=== PATIENT | female | born 1955 | race African-American/Black ===

== ENCOUNTER 2018-11-04 11:36 | Emergency (ER) | payer OTHER ==
[~2018-11-04] VITALS: Ht 160 cm; Wt 54.4 kg
[2018-11-04 12:50] LABS: ABSOLUTE NEUTROPHILS 1.3 thou/uL (1.4-8.2); BASOPHILS 0.7 % (0.0-2.0); EOSINOPHILS 1.1 % (0.0-3.0); HEMATOCRIT 37.6 % (37.0-47.0); HEMOGLOBIN 12.9 gm/dL (12.0-15.0); LYMPHOCYTES 44.1 % (24.0-44.0); MCH 33.1 pg (26.0-34.0); MCHC 34.3 g/dL (28.0-37.0); MCV 96.3 fL (80.0-100.0); MONOCYTES 9.3 % (1.0-8.0); PLATELET COUNT 162 thou/uL (150-400); POLYS 44.8 % (36.0-66.0); RBC 3.91 mil/uL (4.20-5.00); RDW 13.6 % (10.5-14.5)
[2018-11-04 13:05] LABS: CALCIUM 8.7 mg/dL (8.5-10.1); CREATININE 0.7 mg/dL (0.6-1.0); POTASSIUM 3.6 mmol/L (3.5-5.1)
[2018-11-04] MEDS ORDERED: MOBIC7.5 MG PO (14:29)
[2018-11-04 15:24] VITALS: BP 122/71
== END 2018-11-04 15:25 | disposition home or self-care (01) ==
LOC: ER 11:36
PROVIDERS: Nurse Practitioner Family
DX: S39.012A Strain of muscle, fascia and tendon of lower back, initial encounter (principal); S09.90XA Unspecified injury of head, initial encounter; M25.551 Pain in right hip; R78.0 Finding of alcohol in blood; I10 Essential (primary) hypertension; F31.9 Bipolar disorder, unspecified; F20.9 Schizophrenia, unspecified; W00.0XXA Fall on same level due to ice and snow, initial encounter; Y92.89 Other specified places as the place of occurrence of the external cause; Y93.89 Activity, other specified; Y99.8 Other external cause status

== ENCOUNTER 2018-12-28 14:54 | Inpatient (IN) | payer MEDICAID ==
[~2018-12-28] VITALS: Ht 157.5 cm; Wt 46.4 kg
[~2018-12-28 14:54] MED LIST: MOBIC7.5 MG PO
--- NOTE | 2018-12-28 15:19 | NUR ---
PHONE NUMBER: KEMAR SILAS: [phone] SON'S PHONE NUMBER: WILLY SILAS: [phone]
[2018-12-28 15:59] LABS: ABSOLUTE NEUTROPHILS 1.8 thou/uL (1.4-8.2); BASOPHILS 1.2 % (0.0-2.0); EOSINOPHILS 0.4 % (0.0-3.0); HEMATOCRIT 33.1 % (37.0-47.0); HEMOGLOBIN 11.5 gm/dL (12.0-15.0); LYMPHOCYTES 43.7 % (24.0-44.0); MCHC 34.6 g/dL (28.0-37.0); MCV 98.2 fL (80.0-100.0); MONOCYTES 10.7 % (1.0-8.0); PLATELET COUNT 196 thou/uL (150-400); RBC 3.37 mil/uL (4.20-5.00); RDW 13.9 % (10.5-14.5); WBC 4.1 thou/uL (4.0-11.0)
[2018-12-28 16:07] LABS: CALCIUM 8.7 mg/dL (8.5-10.1); CREATININE 0.7 mg/dL (0.6-1.0)
[2018-12-28 18:39] VITALS: BP 116/93
[2018-12-28 19:20] VITALS: BP 144/87
[2018-12-28 20:14] LABS: FOLIC ACID 22.9 ng/mL (8.6-58.9)
[2018-12-28 20:50] VITALS: BP 136/89
[2018-12-29 03:42] VITALS: BP 168/87
[2018-12-29] MEDS ORDERED: QUETIAPINE FUM100 MG PO ×2 (04:29→04:30)
[2018-12-29] MEDS ORDERED: KLOR-CON M2020 MEQ (04:31)
[2018-12-29] MEDS ORDERED: VITAMIN B-1100 M1 PO (04:31)
[2018-12-29] MEDS ORDERED: MAGOX 400400 MG PO (04:33)
[2018-12-29] MEDS ORDERED: ACAMPROSATE CA333 MG PO (04:33)
[2018-12-29] MEDS ORDERED: VITAMIN B-1100 M2 PO (04:33)
[2018-12-29] MEDS ORDERED: NORVASC10 MG PO (04:34)
[2018-12-29] MEDS ORDERED: METOPROLOL TART25 MG PO (04:34)
[2018-12-29] MEDS ORDERED: FOLIC ACID1 MG PO (04:35)
[2018-12-29] MEDS ORDERED: SEROQUEL XR400 M1 PO (04:37)
[2018-12-29 05:23] LABS: HEMATOCRIT 33.2 % (37.0-47.0); HEMOGLOBIN 11.4 gm/dL (12.0-15.0); MCH 34.1 pg (26.0-34.0); MCHC 34.2 g/dL (28.0-37.0); MCV 99.6 fL (80.0-100.0); RBC 3.33 mil/uL (4.20-5.00); RDW 13.8 % (10.5-14.5); WBC 2.1 thou/uL (4.0-11.0)
[2018-12-29 05:28] LABS: CALCIUM 8.2 mg/dL (8.5-10.1); CREATININE 0.7 mg/dL (0.6-1.0); POTASSIUM 3.8 mmol/L (3.5-5.1)
--- NOTE | 2018-12-29 06:28 | NUR ---
PT ARRIVED ON ETOH VIA ER FROM HOME. STATES HE COULD NOT CONTROL HIS . DURING ADMISSION PROCESS HOME MEDICATIONS WERE DISCOVERED AND SENT TO PHARMACY. PT'S SEROQUEL HAS NOT BEEN TAKEN SINCE IT WAS REFILLED 12/12. UNABLE TO GET ANY KIND OF ANSWERS DURING ADMISSION. PT HX STATES SHE HAS MENTAL HEALTH ISSUES AND HAS BEEN TO [facility] 3 TIMES IN THE PAST. AT TIMES PT IS COMBATIVE MANAGING BEHAVIOR WITH ATIVAN AND HALDOL. HEART RATE HAS BEEN TACHY, ADMINISTERED IV LOPRESSOR AND HAD GOOD RESULTS. BED ALARM IS A MUST PT WILL TRY TO GET OUT OF BED AND IS A FALL RISK. PT AT ONE POINT DISCOVERED EATING HER OWN FECES. HOURLY ROUNDING.
[2018-12-29 07:22] VITALS: BP 155/104; BP 158/102
[2018-12-29 11:30] VITALS: BP 155/101
--- NOTE | 2018-12-29 15:31 | NUR ---
Case opened to follow for dc planning. Pt admitted for ethol w/d and back pain. R/o seizures. Pt sleeping at this time. Assembler Erector spoke with the pt's spouse via phone to complete the cm assessment. Pt and spouse live together in an apt. The pt is disabled from her mental health issues with dx of schizophrenia and bipolar. She suffers from spinal stenosis also and fell in the parking lot of [employer] [facility] in October. She has been having back pain and drinking more since that time. Her spouse reports that she is indep with gait and adl's. She has a pcp Dr. Romero through the [facility] on . Her next appt is schedule for next Thursday. She [facility] services for psych/counseling and also has an appt next Thursday with ALVARO Vicente. She has not been taking her psych meds. Her spouse is supportive and will bring in her home med list to nursing. He takes her to her appts. He reports that she has been at [facility] within the past month as well. Cm role introduced. Will continue to follow for any dc planning needs. Psych eval pending.
--- NOTE | 2018-12-29 15:32 | NUR ---
Assumed care of Pt at 0700. Pt stuporous but arousable, confused, mostly groaning and yelling out impulsively. restless at times, several attempts to pull at medical equipment. no family at bedside. unable to tolerate PO due to AMS at this time. incontinent of bowel and bladder. psych consulted. EEG performed at bedside. hypertensive but stable. sinus on telemetry. will cont to monitor. slow progress toward poc goals.
[2018-12-29 16:31] VITALS: BP 157/112
[2018-12-29 19:30] VITALS: BP 153/113
--- NOTE | 2018-12-30 01:50 | NUR ---
OF PT CAME TO VISIT [facility]IS[facility]. EARLIER IN THE DAY WHEN SPEAKING TO CM HE SAID HE WOULD BRING UP PT'S PSYCH MEDICATIONS LIST. I ASKED AND HE FORGOT AGAIN. I GOT PT TO TAKE ORAL BP MEDICATION AND SEROQUEL, BUT REFUSED TO TAKE PART IN ASSESSMENT. PT COMBATIVE AND SWINGS AT STAFF. KEEP DISTANCE. BED ALARM IN PLACE. CIWA'S STILL AROUND 13. FOLLOWING POC AND ROUNDING HOURLY. IVF BEING INFUSED. STILL HARD TO TELL WHAT PT'S BASELINE MENTATION IS.
[2018-12-30 04:05] VITALS: BP 143/89
[2018-12-30 05:51] LABS: ALBUMIN 3.5 g/dL (3.4-5.0); CALCIUM 9.3 mg/dL (8.5-10.1); CREATININE 0.6 mg/dL (0.6-1.0); MAGNESIUM 1.7 mg/dL (1.8-2.4); PHOSPHORUS 3.8 mg/dL (2.5-4.9); POTASSIUM 3.3 mmol/L (3.5-5.1); TOTAL BILIRUBIN 1.5 mg/dL (<0.1-1.0); TOTAL PROTEIN 7.5 g/dL (6.4-8.2)
[2018-12-30 11:26] VITALS: BP 150/99
--- NOTE | 2018-12-30 13:46 | NUR ---
ASSUMED CARE OF PT AT 0700 THIS SHIFT. PT HAS NOT BEEN COOPERATIVE, HAS BEEN COMBATIVE TO THE STAFF AND SLEEPY/LETHARGIC NOT FOLLOWING COMMANDS. PT HAS BEEN ON CIWA PROTOCOL, ATIVAN IV ADMINISTERED WHEN NEEDED, PT WILL NOT TAKE PO MEDS. PT HAD A CT OF THE HEAD, SEE RESULTS. PT'S SON CALLED AND WANTED TO KNOW WHAT FAMILY NEEDS TO DO TO PLACE PT IN FACILITY WHERE SHE CAN GET BACK ON HER PSYCH MEDS, WILL FOLLOW UP WITH CASE MANAGEMENT. PT IS CURRENTLY RESTING COMFORTABLY, ASSESSMENTS ARE DOCUMENTED. PLAN OF CARE IS TO CONTINUE TO MONITOR PT CLOSELY.
[2018-12-30 15:14] VITALS: BP 158/84
--- NOTE | 2018-12-30 15:14 | NUR ---
SW received consult to obtain records from [facility] [[email or web address] SW reviewed chart and spoke with nursing and attending physician. Pt's HR was elevated earlier today. SW requested community arts centre manager to request records from [facility] [[email or web address] Psych is following to for recommendations at time of discharge. Pt's nurse states that pt's son, requested assistance with having pt involuntarily placed in a psych facility. SW returned call to [facility] at [phone] and left voice message. SW requested psych contact pt's son as well to discuss involuntary process. SW is following to assist as needed with discharge planning.
[2018-12-30 19:45] VITALS: BP 152/98
[2018-12-30] MEDS ORDERED: TRAZODONE HCL100 MG PO (19:53)
[2018-12-30] MEDS ORDERED: MOBIC7.5 MG PO (19:54)
[2018-12-30] MEDS ORDERED: REMERON15 MG PO (19:54)
[2018-12-30] MEDS ORDERED: PAXIL10 MG PO (19:54)
[2018-12-30 22:50] VITALS: BP 172/111
[2018-12-31] VITALS (7 sets, daily range): BP systolic 134–179; BP diastolic 80–112
--- NOTE | 2018-12-31 04:36 | NUR ---
ASSUMED CARE AT START OF SHIFT PT REMANINS VERY CONFUSED AGITATED AND COMBATIVE AT TIMES AT BEDSIDE AND PT WAS UNABLE TO RECONGIZE HIM , PT GIVEN ATIVAN AND HALDOL TIME X, PT BP ELEVATED BUT APPEARS TO MORE WHEN PT IS AGITATED. BED ALARM ON FOR SAFETY , PT INCONTINENT OF URINE TOOK SIP OF WATER , BUT REFUSED MORE WHEN OFFERED. WILL CONTINUE WITH PLAN OF CARE.
[2018-12-31 05:39] LABS: POTASSIUM 3.3 mmol/L (3.5-5.1)
--- NOTE | 2018-12-31 11:18 | NUR ---
Assumed care of patient at 0700. Patient is drowsy, but arousable to verbal stimuli. When awakened, patient is impulsive, restless, agitated. Appears to be having visual hallucinations, attempts to pull at lines. Will swing at staff and yell when awake and staff is attempting care. Was able to answer some basic questions this morning and follow simple commands, such as squeezing hands. Attempted to give sips of water, but patient kept pushing water away and saying no. Refusing PO medications. CIWAs as charted q 2 hours and treated accordingly. Patient with tremors when awake, otherwise when sleeping, no obvious tremoring. Incontinent of urine, cleaned as needed, barrier cream applied. Repositioning ever couple hours to maintain skin integrity. Fall precautions in place and hourly rounds performed. Dr. Aiken rounded, stating that patient has been seizing. Order for IV Keppra x1 now, neuro consult and transfer to CCU. IV Keppra given. Seizure precautions initiated, bed rails padded. No seizure activity witnessed by this RN during this shift. Report given to Kaitlin. Belongings gathered. Moved to room 214. Attempted to call , Sloan, with no answer. Message left with callback number.
--- NOTE | 2018-12-31 18:55 | NUR ---
PT TRANSFERED FROM [facility]. ALERT AND ORIENTED TO SELF. ON CIWA PROTOCAL. SCORED AN EIGHT. PRN ATIVAN GIVEN. UPDATED ON PTS PROGRESS. SEIZURE PRECAUTION ENFORCED. WILL CONTINUE TO MONITOR.
--- NOTE | 2018-12-31 22:14 | NUR ---
22:17> I PULLED OUT TWICE THE ATIVAN 2 MG IV FROM PYXIS BECAUSE THE 1ST ONE WAS WASTED. WHEN I WAS ABOUT TO GIVE THE MED THE PATIENT MADE A SUDDEN MOVEMENT AND I ACCIDENTALLY PUSH THE SYRINGE AND JUST WASTED THE MED TO THE PATIENT LEFT THIGH. SO I JUST PULLED ANOTHER DOSE. THAMK YOU,
[2019-01-01 00:38] VITALS: BP 144/83
[2019-01-01 05:27] LABS: ALBUMIN 3.7 g/dL (3.4-5.0); CALCIUM 9.6 mg/dL (8.5-10.1); CREATININE 0.6 mg/dL (0.6-1.0); MAGNESIUM 1.7 mg/dL (1.8-2.4); POTASSIUM 4.5 mmol/L (3.5-5.1); TOTAL PROTEIN 8.2 g/dL (6.4-8.2)
[2019-01-01 05:38] VITALS: BP 162/96
--- NOTE | 2019-01-01 06:20 | NUR ---
ASSESSMENT DOCUMENTED, PRN ATIVAN GIVEN PER CIWA PROTOCOL. ORIENTED TO SELF ONLY. REORIENTATION DONE. TURNING DONE, PERIANAL CARE DONE. FF UP POC.
[2019-01-01 08:17] VITALS: BP 141/98
--- NOTE | 2019-01-01 10:43 | NUR ---
PT PULLED OUT IV AND IS HAVING PERIODS OF DISORIENTATION. GAVE PO ATIVAN AND IV TEAM WILL COME TO BEDSIDE TO ESTABLISH IV ACCESS.
[2019-01-01 13:43] VITALS: BP 149/91
--- NOTE | 2019-01-01 18:29 | NUR ---
PT REMAINS STILL GOING THROUGH ETOH WITHDRAWAL SCORING AROUND 24 ON CIWA. GAVE IV ATIVAN SEVERAL TIMES THIS SHIFT.
[2019-01-01 19:40] VITALS: BP 157/106
[2019-01-02 04:55] VITALS: BP 158/85
--- NOTE | 2019-01-02 05:43 | NUR ---
ASSESSMENT DOCUMENTED.PT REMAINS DISORIENTED.ON CIWR PROTOCOL,CIWR SCORE 11 THIS AM,CONTINUES TO HAVE AUDITORY AND VISUAL HALLUCINATION.PT IMPULSIVE AND AGITATED WHILE GIVING CARE,TRYING TO HIT STAFF.OPENS EYES SPONTANEOULY.TREATED WITH ATIVAN PER CIWR PROTOCOL.IVF INFUSING.SEIZURE PRECAUTIONS INPLACE.NO SEIZURES ACTIVITIES NOTED.ON KEPPRA IV,TOLERATED. AT THE BEDISDE MOST OF THE EVENING HOURS.INCONTINENT OF B&B.POC IS TO CONTINUES WITH CURRENT ORDERS.WILL CONT TO MONITOR PER POC.
[2019-01-02 05:44] LABS: CALCIUM 9.1 mg/dL (8.5-10.1); CREATININE 0.5 mg/dL (0.6-1.0); MAGNESIUM 1.9 mg/dL (1.8-2.4)
[2019-01-02 05:50] LABS: POTASSIUM 2.7 mmol/L (3.5-5.1)
[2019-01-02 08:00] VITALS: BP 153/108
[2019-01-02 12:54] VITALS: BP 144/100
--- NOTE | 2019-01-02 14:50 | NUR ---
ASSUMED CARE AT SHIFT CHANGE, PATIENT REMIANS CONFUSED AND RESTLESS. SHE MADE SEVERAL ATTEMPS TO GET OUT OF THE BED, SHE IS MOVED TO 202 CLOSER TO NURSING STATION. ASSESSMENT DOCUMENTED, AND WILL CONTINUE WITH POC.
[2019-01-02 17:16] VITALS: BP 150/107
[2019-01-02 19:25] VITALS: BP 152/103
[2019-01-03 03:49] LABS: CALCIUM 8.8 mg/dL (8.5-10.1); CREATININE 0.6 mg/dL (0.6-1.0); MAGNESIUM 1.6 mg/dL (1.8-2.4); TOTAL BILIRUBIN 0.6 mg/dL (<0.1-1.0); TOTAL PROTEIN 6.3 g/dL (6.4-8.2)
[2019-01-03 03:52] LABS: POTASSIUM 2.9 mmol/L (3.5-5.1)
[2019-01-03 05:14] VITALS: BP 177/111
--- NOTE | 2019-01-03 06:00 | NUR ---
ASSESSMENT DOCUMENTED.PT RESTING AT THIS TIME.CONT ON ALCOHOL WITHDRAW TX PER PROTOCOL.CIWR HAS BEEN OVER 10.PT HAS BEEN IMPULSIVE MOST OF THE NOC.HAVING VISUAL AND AUDITORY HALLUCINATION.SOME TREMORS NOTED.PT FIDIGITY AND AGITATED WHILE AWAKE.TRYING MUTIPLE OF TIMES TO GET OOB.DISORIENTED MOST OF THE TIME.FOLLOWS SIMPLE COMMANDS.SEIZURE PRECAUTIONS IN PLACE.POC IS TO CONTINUES WITH TX.WILL CONT TO MONITOR PER POC.
[2019-01-03 07:04] VITALS: BP 131/85
[2019-01-03 11:23] VITALS: BP 132/93
--- NOTE | 2019-01-03 12:04 | HC ---
[facility] [place] [address] CONSULTATION Name: JEANIE ROSEN Room #: 202-P [facility] IN M.R.#: [id number] Admission: 12/28/18 ������������������ Attend Phys: Wade Whitaker MD Discharge: ������������������ Date of : 59 Report #: [id number] THIS REPORT FOR: //name// CC: Wade Whitaker [facility] physician/PCP DATE OF SERVICE: 12/31/2018 HISTORY OF PRESENT ILLNESS: This is a 63-year-old female patient who was evaluated by me for the possibility of seizure. The history is not very clear in this patient. No family member is available. The patient apparently has a history of schizophrenia and bipolar disorder. She came to the hospital with back pain. She has seen multiple physicians including psychiatrist and looks like she has a significant problem with alcohol intake. According to nurses, she was very agitated. She is in alcohol withdrawal. Her other problems may be contributing to her symptoms including a history of schizophrenia and bipolar disorder. REVIEW OF SYSTEMS: Attempted from the patient's record as the patient is not able to provide any history and none of the family member is available. Apparently, she has a psychiatric history of schizophrenia and bipolar disorder. Her EEG has demonstrated the possibility of seizure, but it has so much artifact. It is difficult to be certain about these seizures. This is all the 14 points relevant I can get in this patient. PAST MEDICAL HISTORY: Negative for any seizure. FAMILY HISTORY: Unavailable. SOCIAL HISTORY: She apparently has a history of alcohol abuse. PHYSICAL EXAMINATION: Indicate she does not cooperate. She did get some Ativan and she did not wake up for my examination. I tried to do the cranial nerve examination, I could not do it. There is no meningeal sign. Neuromuscular examination was attempted. It was impossible to do. I cannot tell about hearing or vision. She does not have any edema. Her blood pressure is 134/102, pulse is 105, temperature is 97.2. LABORATORY DATA: White count is only 2.1. She did have a CT scan of the head, which was mostly unremarkable. IMPRESSION: This patient has numerous medical problems. It is not possible to be certain if the epileptiform activity on the EEG is seizure because there is so much artifact in that EEG. It is okay to leave her on Keppra for the time being and we will try to repeat the EEG when she is stable. I will also try to talk to the to see how aggressive they want to be and what her baseline [address] [address] CONSULTATION Name: JEANIE ROSEN Room #: 202-P ADM IN M.R.#: [id number] Admission: 12/28/18 ������������������ Attend Phys: Wade Whitaker MD Discharge: ������������������ Date of : 59 Report #: [id number]. Thank you very much for this referral and if you have any questions, please feel free to contact me. ��������������������������������������������� <ELECTRONICALLY SIGNED> ���������������������������������������� By: Nghia Daley MD ��������������������������������������������� 01/03/19 1204 1419 [id number] MD lita Bell
--- NOTE | 2019-01-03 12:05 | EEG ---
[facility] [place] [address] ELECTROENCEPHALOGRAM Name: JEANIE ROSEN Room #: 202-P [facility] IN M.R.#: [id number] ������������������ Admission: 12/28/18 ������������������ Attend Phys: Wade Whitaker MD Discharge: ������������������ Date of : 59 Report #: [id number] ����������������������������������������������������������������� [id number] THIS REPORT FOR: //name// CC: Wade Whitaker [facility] physician/PCP DATE OF SERVICE: 01/01/2019 REASON FOR VISIT: This patient is being evaluated for altered mental status. Last EEG has shown some seizure activity because she did not cooperate. She did not cooperate this time either. INTERPRETATION: EEG does appear to be showing a background activity of about 10 Hz and 40 microvolts. A lot of artifact is present. Part of this EEG demonstrated drowsiness and that is associated with slowing on both sides. Photic stimulation was unremarkable. No active epileptiform activity was visualized in this patient. IMPRESSION: The patient's electroencephalogram continued to demonstrate lot of artifact. I did not see any active epileptiform activity. Combining this both electroencephalogram, it would appear that most likely the last finding was an artifact rather than real seizure activity. Thank you very much for this referral. ���������������������������������������� <ELECTRONICALLY SIGNED> ���������������������������������������� By: Nghia Daley MD ��������������������������������������������� 01/03/19 1205 [id number] Nghia Daley MD /nt
--- NOTE | 2019-01-03 12:05 | EEG ---
[facility] [place] [address] ELECTROENCEPHALOGRAM Name: JEANIE ROSEN Room #: 202-P ADM IN M.R.#: [id number] ������������������ Admission: 12/28/18 ������������������ Attend Phys: Wade Whitaker MD Discharge: ������������������ Date of : 59 Report #: [id number] ����������������������������������������������������������������� [id number] THIS REPORT FOR: //name// CC: Wade Whitaker [facility] physician/PCP DATE OF SERVICE: 12/29/2018 This patient has a question of seizure. EEG was done by placing the electrodes by standard 10-20 system of electrode placement. Both referential and sequential montages were used for recording. Background activity on the right side is about 9 Hz and 30 microvolts. The patient became drowsy that is associated with bilateral slowing. EEG does appear to be showing epileptiform activity arising from the left temporal area. It is difficult to totally separate it from the artifact. Photic stimulation is unremarkable. IMPRESSION: This patient's EEG appeared to be demonstrating epileptiform activity arising from the left temporal area. That should be further worked up as indicated. However, clinical correlation is recommended because the finding is difficult to separate from the artifact. Thank you very much for this referral. ���������������������������������������� <ELECTRONICALLY SIGNED> ���������������������������������������� By: Nghia Daley MD ��������������������������������������������� 01/03/19 1205 1410 1429 Nghia Daley MD /nt
--- NOTE | 2019-01-03 14:43 | NUR ---
Day 6 <10% intake. To prevent further nutritional decline, recommend Clinimix PPN of 4.25% AA, 5% Dextrose at goal rate of 50 mL/hr. Start at 20 mL and advance slowly. Monitor magnesium, phosphorus, potassium for refeeding syndrome.
[2019-01-03 15:07] VITALS: BP 127/93
--- NOTE | 2019-01-03 18:26 | NUR ---
ASSUMED CARE AT SHIFT CHANGE AND ASSESSMENT DOCUMENTED. VSS. PATIENT REMAINS CONFUSED AND RESTLESS AND MORE RESTLESS TOWARDS THE END OF THE SHIFT. CIWA ABOVE 10 IN THE AM BUT BELOW 10 THE REST OF THE DAY. AT THIS TIME CIWA OF 12 WITH VISAUL AND AUDITORY HALUCINATION NOTED. S/B PSYCH AND MED ADJUSTMENTS MADE. AND WILL CONTINUE WITH POC
[2019-01-03 18:55] VITALS: BP 164/99
--- NOTE | 2019-01-04 04:50 | NUR ---
ASSUMED PT CARE AT 1900 WITH BEDSIDE REPORT COMPLETED. PT IS ALERT AND ORIENTED TO SELF. PT IS STABLE BUT STARTED GETTING CONFUSED, AGITATED, COMBATIVE. PT IS HALLUCINATION. MEDICATION ADMINISTERED, AND PT PLACED IN RESTRAINT DUE TO DANGER TO OTHERS SCHEDULED MEDS ADMINISTERED TO PT, PT TOLERATED PO INTAKE. VITAL SIGNS STABLE. DENIES ANY FURTHER NEEDS AT THIS TIME.
[2019-01-04 05:50] VITALS: BP 180/96
[2019-01-04 07:06] VITALS: BP 117/76
--- NOTE | 2019-01-04 10:32 | NUR ---
patients [facility] Mental Health coordinator visited today. Lisa Giles [phone], She reports patient cont with ETOH cycle of drinking and withdraw. She has been at and recently [facility]. She reports at [facility] a couple of weeks for withdraw then [facility] to adjust medications. She reports she has spoken to patient that they cannot provide the services she needs. She has prev lived in [place] with a son but now residing in [place]. She has [place] medicaid and needs services provided by [facility] who services [place] and area in [place] [facility] currently [place]. Will discuss with patient however she cont to be confused.
[2019-01-04 10:39] VITALS: BP 140/101
[2019-01-04 15:08] VITALS: BP 164/113
--- NOTE | 2019-01-04 17:06 | NUR ---
ASSUMED CARE OF PT AT 0700. PT WAS ALERT TO PERSON AND WAS AGITATED AND ANXIOUS. 2 MG LORAZEPAM IM WAS ADMINISTERED PRESCRIBED FOR AGITATION AND ANXIETY. PT WAS ABLE TO SLEEP FROM 1011-1004, THEN CONTINUED TO SHOW SIGNS OF AGITATION. NURSES UTILIZED THERAPEUTIC COMMUNICATION AND THERAPEUTIC TOUCH WITH PT. PT BEGAN DEVELOPING HALLUCINATIONS AT 1600 AND WAS BECOMING COMBATIVE. DR. WHITT CONTACTED CONCERNING PTS CONDITION. PT WAS PLACED IN 4 POINT RESTRAINTS DUE TO COMBATIVENESS. PT DID NOT WANT TO EAT OR DRINK FOR MOST OF DAY, DRANK SODA IN PM. PT DID NOT REPORT NAUSEA AND NO VOMITING WAS OBSERVED. PT REPORTED BACK PAIN AND FACES SCALE WAS USED TO FIND A PAIN RATING OF 6. IV MORPHINE WAS ADMINISTERED. PT FREQUENTLY WAS IN SINUS TACHYCARDIA WITH A PULSE OF 113. PT EXHIBITED HIGH BLOOD PRESSURE OF 164/113 AND HYDRALAXZINE PO WAS GIVEN, THE MEDICATION WAS NOT GIVEN IN AM DUE TO PT REFUSAL. PT SHOWED NO DIFFICULTY WITH BREATHING AND MAINTAINED 02 WITHIN NORMAL LIMITS. WILL CONTINUE TO MONITOR PT.
--- NOTE | 2019-01-04 18:08 | NUR ---
I have reviewed the documentation by LYNETTE CAGE from 699 to 1811 and I concur with it.
[2019-01-04 19:55] VITALS: BP 125/75
--- NOTE | 2019-01-05 04:24 | NUR ---
ASSUMED PT CARE AT 1900 WITH NO SIGN OF DISTRESS NOTED, PT IS SLEEPING AND STILL IN RESTRAINTS. LATER, PT WOKE UP AND GOT COMBATIVE WITH SPOUSE IN THE ROOM. SCHEDULED MEDS ADMINISTERED TO PT. PT TOLERATED PO INTAKE. PT IS STABLE THROUGHTOUT THE NIGHT. DENIES ANY FURTHER NEEDS AT THIS TIME.
[2019-01-05 04:50] VITALS: BP 160/96
[2019-01-05 08:00] VITALS: BP 131/79
--- NOTE | 2019-01-05 10:36 | NUR ---
Day 8 with very little intake. Starting calorie count to obtain po intake. Will order supplements at each meal for encouraged po intake. Recommend Clinimix PPN of 4.25% AA, 5% Dextrose at 50 mL/hr. Will provide 91% protein needs and 29% kcal needs. Start at 20 mL/hr and advance slowly, monitoring for refeeding syndrome.
[2019-01-05 12:04] VITALS: BP 124/73
[2019-01-05 16:00] VITALS: BP 119/82
--- NOTE | 2019-01-05 18:13 | NUR ---
ASSUMED CARE OF PT AT SHIFT CHANGE. ASSESSMENTS CHARTED. MEDS GIVEN PER NOV. PT ALERT, ORIENTED TO PERSON, IMPULSIVE AND AGITATED AT TIMES. PT VERBALIZES THAT SHE NEEDS TO LEAVE TO GO TO THE STORE, AFTER REORIENTING, PT BECOMES COMBATIVE AT TIMES, KICKING AND SWINING AT NURSE STAFF. PT REASSURED, REORIENTED FREQUENTLY. ANXIETY/AGITATION MANAGED WITH ATIVAN PRN. PT C/O BACK PAIN- MANAGED WITH IV PAIN MEDS. PT IN 3 POINT RESTRAINTS WITH SIDE RAILS PADDED, RESTRAINTS DOCUMENTED. BED ALARM ON THROUGHOUT SHIFT, FREQUENT CHECKS ON PT. PT CONTINENT PER BEDPAN. PT REFUSED MEAL TRAYS, BUT WOULD DRINK ENSURES WITH EACH MEAL. O2 SATS WNL ON ROOM AIR, NO S/SX OF CARD OR RESP DISTRESS NOTED. VISITED WITH PT, PT BECAME HOSTILE VERBALLY. EVENTUALLY PT WAS CALM AND FELL ASLEEP. PT CURRENTLY RESTING IN BED, CONTINUING TO MONITOR, WILL ASSESS PT NEEDS FREQENTLY.
[2019-01-05 20:15] VITALS: BP 137/97
[2019-01-06 00:45] VITALS: BP 114/60
--- NOTE | 2019-01-06 02:57 | NUR ---
ASSUMED CARE AT 1900, RESTRAINT HAND-OFF COMPLETED. INITIAL ASSESSMENT COMPLETED. PT AGITATED, YELLING OUT, PULLING AT RESTRAINTS/BEDDING/TELE LEADS. PT C/O HER BACK HURTING, STATES SHE NEEDS TO USE THE BATHROOM--GIVEN BEDPAN ALTHOUGH PT IS FREQ INCONT. COMPLETED A FULL BED CHANGE. PT YELLING AND WANTING HER WATCH, HER KEYS, TO GO TO THE [facility] STORE, AND WANTING TOBACCO; NOT REDIRECTABLE, IS DISORIENTED x4. GIVEN 2MG PO ATIVAN ALONG WITH HS MEDS; PT CONTINUED TO YELL AND THRASH. GIVEN SPRITE AND APPLESAUCE. GIVEN DOSE OF MORPHINE FOR BACK PAIN, SINCE THEN SHE HAS SLEPT. MAINTAINING FREQ OBSERVATION AND SAFETY CHECKS PER FALL, SEIZURE, AND RESTRAINT PROTOCOLS. HAS BEEN SR WITH 1ST DEG BLOCK ON TELE, HR IN 90'S WHEN AGITATED AND 70'S WHILE SLEEPING. NO OTHER CONCERNS, WILL CONTINUE TO MONITOR.
[2019-01-06 04:02] VITALS: BP 136/95
[2019-01-06 08:00] VITALS: BP 126/83
[2019-01-06 12:07] VITALS: BP 111/73
--- NOTE | 2019-01-06 12:10 | NUR ---
Case discussed with the care team. Will ask for therapy and rehab medicine evals. Nursing will try to mobilize the pt and get her up to the chair. 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 She was able to participate in conversation and decision making as well per her spouse. She will likely need some level of rehab. Psych imput noted. Will follow along.
[2019-01-06 12:47] LABS: CALCIUM 9.6 mg/dL (8.5-10.1); CREATININE 0.6 mg/dL (0.6-1.0); POTASSIUM 3.6 mmol/L (3.5-5.1)
--- NOTE | 2019-01-06 14:44 | NUR ---
GERALDINE RODRIGUEZ, TELEPHONE SUPERVISOR WITH DR. WHITE, EVALUATED PATIENT THIS DATE. AT THIS TIME PATIENT IS IN RESTRAINTS, NOT COMMUNICATING OR FOLLOWING COMMANDS. GERALDINE/DR. WHITE WILL CONTINUE TO FOLLOW AND REASSESS APPROPRIATENESS FOR ACUTE REHAB WHEN PATIENT BETTER ABLE TO PARTICIAPTE. [facility] ACUTE REHAB IS NOT IN NETWORK WITH PATIENT'S INSURANCE. TIMBER MANAGEMENT ASSISTANT HAS BEEN INFORMED. THANK YOU FOR THIS REFERRAL.
[2019-01-06 16:00] VITALS: BP 103/66
--- NOTE | 2019-01-06 18:42 | NUR ---
ASSUMED CARE AT SHIFT CHANGE, CONFUSED AND RESTLESS. RESTARINTS OFF AT 8 AM, AND FOLLOWS SIMPLE COMMANDS. REMAINS TO REFUSE FOOD INTAKE. SHE BECAME RESTLESS AROUND 1430 AND SHE WAS IN UP IN A WHEEL CHAIR. PATIENT START CRYING AND CALL HER NAME, 2MG ATIVAN PO AND WAS PUT BACK TO BED TO REST. SHE REMAINS RESTLESS. VSS, SR ON THE MONITOR AND AFEBRILE. AND WILL CONTINUE WITH POC.
[2019-01-06 20:34] VITALS: BP 104/72
[2019-01-07 04:55] VITALS: BP 121/85
--- NOTE | 2019-01-07 07:23 | NUR ---
PATIENTS CARE ASSUMED AT SHIFT CHANGE. PATIENT WAS ASSESSED AND MEDS WERE PASSED. PATIENT BECAME VERY COMBATIVE DURING REPORT WITH HER MALE PARTNER. ALL 2100 [place] [address]. BY 2029 PATIENT WAS SOUND A SLEEP AND NURSING WOKE HER UP AT SIX FOR A BED BATH DUE TO HER INCONTINENT. PATIENT WAS WASHED AND LINEN WAS CHANGED. PATIENT WILL TAKE PILLS WHOLE AND SHE CHEWS THEM. SHE WILL TAKE WITH WARM COFFEE ,WATER OR APPLESAUCE. IF COFFEE IS COLD SHE WILL SPIT IT AT YOU. PATIENT HAD AN UNEVENTFUL NIGHT. NO RESTRANTS WERE NEEDED. THE BED IS IN A LOW AND LOCK POSITION, THE ALARM IS ON. HOURLY PLUS ROUNDS WERE MADE.
--- NOTE | 2019-01-07 11:52 | NUR ---
PT ASSESSED AT START OF SHIFT. SLEEPING AND THEN AWAKENED CONFUSED AND RESISTENT TO CARE. WOULD NOT AGREE TO EAT ANY BREAKFAST OR DRINK ANYTHING INCLUDING COFFEE WHICH SHE LIKES. REFUSED TO TAKER HER MEDS AND THEN TURNED ON SIDE AND FELL BACK TO SLEEP. HAS AWAKENED INTERMITTENTLY MOANING IF IN PAIN AND THEN RETURNS TO SLEEP. CONTINUING TO MONITOR FREQUENTLY.
[2019-01-07 12:13] VITALS: BP 139/94
--- NOTE | 2019-01-07 13:51 | NUR ---
Calorie count complete. For 24 hour period, pt meeting 54% kcal needs and 67% protein needs solely from Ensure supplement. Refusing all meals. Still combative, confused. Needs encouragement of po intake. Will order 2 supplements/meal for additional nutrition.
--- NOTE | 2019-01-07 14:00 | NUR ---
[facility] acute rehab is out of network with the pt's insurance plan. Will ask for [facility] or [facility]NA[facility]EL eval once the pt is able to fully participate in therapy. Rehab medicine is following. Case discussed with the care team.
--- NOTE | 2019-01-07 18:33 | NUR ---
PT CONTINUES TO BE CONFUSED AND DISORIENTED. MORE COOPERATIVE W/ CARE THIS AFTERNOON. DRANK WATER W/ MEDS AND DRANK ENSURE WITH 'S HELP. UP TO THE BSC FOR BM AND UNABLE TO STAND WAS COMPLETE LIFT TO COMMODE.
[2019-01-07 20:18] VITALS: BP 98/70
--- NOTE | 2019-01-08 05:04 | NUR ---
ASSESSMENT DOCUMENTED.PT RESTING AT THIS TIME.PT WAS VERY AGITATED,CONFUSED AND IMPLUSIVE AT THE BEGINNING OF THE SHIFT, TRYING TO CLIMB OVER THE RAILS,TRYING TO HIT AND KICK STAFF.TRIED TO CALM PT DOWN WITHOUT SUCCESS REQUIRING GIVING OF ANTIANXIETY MEDS.PT LATER FELL ASLEEP AFTER COUPLE OF HOURS TRING TO CLIMB OUT OF THE BED AND YELLING OUT.
[2019-01-08 06:15] VITALS: BP 149/106
[2019-01-08 08:09] VITALS: BP 154/104
[2019-01-08 13:44] VITALS: BP 174/105
[2019-01-08 16:06] VITALS: BP 130/88
--- NOTE | 2019-01-08 17:20 | NUR ---
PT REMAINS CONFUSED, COMBATIVE, AND DIFFICULT TO REDIRECT - ATTEMPTS TO CLIMB OOB - DID AMBULATE FROM BED TO DOOR AND BACK /C PT/NURSE ASSIST - RECOGNIZES AT BEDSIDE
[2019-01-08 20:36] VITALS: BP 120/89
[2019-01-09 04:07] VITALS: BP 121/81
--- NOTE | 2019-01-09 05:14 | NUR ---
ASSUMED CARE AT 1900. BT RESTLESS AND COMBATIVE TRYING TO GET OUT OF THE BED LOOKING FOR HER WALLET. AO X 2. WAS GIVEN PO ATIVAN AND NORCO X1 AT AROUND 1900. PT LETER SETTLED AND SLEPT MOST OF THE NIGHT. STILL ON SEIZURE PRECAUTION. NO INJURY OR FALL REPORTED. WILL CONTINUE TO FOLLOW POC.
[2019-01-09 08:50] VITALS: BP 121/80
[2019-01-09 10:46] LABS: CALCIUM 10.1 mg/dL (8.5-10.1); CREATININE 0.6 mg/dL (0.6-1.0); POTASSIUM 3.3 mmol/L (3.5-5.1)
[2019-01-09 11:24] VITALS: BP 101/73
[2019-01-09 16:50] VITALS: BP 102/73
--- NOTE | 2019-01-09 17:08 | NUR ---
ASSUMED CARE AT 0730, SLEEPING BUT AWAKES TO VOICE. DOES NOT WANT TO GET UP, STATES SHE IS GOING BACK TO SLEEP. SR ON MONITOR, NO COMPLAINTS OF PAIN, NAUSEA, OR VOMITING. DR. VEGA WANTS BETTER DOCUMENTATION OF PO INTAKE. WHEN AWAKE, SHE WILL TAKE SIPS OF WATER. 180CC IN FOR ME THIS SHIFT. STILL UNCOOPERATIVE AND AGITATED WHEN AWAKE.
[2019-01-09 19:34] VITALS: BP 93/61
--- NOTE | 2019-01-10 03:35 | NUR ---
ASSUMED CARE 1899. VSS. ASSESSMENT CHARTED. PT ALERT WITH BEGINING OF SHIFT CALM COMMUNICATION. THROUGHOUT NIGHT PT BECAME AGITATED. PT STARTED TO SAY SHE "NEEDED TO GO TO THE STORE, THE POLICE WERE GOING TO GET HER" CONTINUE TO TALK TO THE WINDOW. PT STARTED TO HIT AND KICK AT STAFF. GOVERNMENT EMPLOYEE NOTIFIED, 2 POINT SOFT RESTRAINTS IN PLACE, FREQUENT CHECKS PER ORDERS. PRN ATIVAN WORKS INITIALLY THEN PT BECOMES ANXIOUS AND AGITATED, GOVERNMENT EMPLOYEE ORDERS GIVEN. HALDOL X1 PER EMAR, MONITORING. X2 TO COMMOD AT BEGINING OF SHIFT- PT WEAK IN LE. PT RE ORIENTED AND REDIRECTED CONTINUOUSLY, CONFUSED AND KICKING THROUGHOUT NIGHT. WILL CONTINUE TO MONITOR AND WITH POC.
[2019-01-10 04:25] VITALS: BP 142/91
[2019-01-10 04:47] LABS: HEMATOCRIT 35.6 % (37.0-47.0); HEMOGLOBIN 12.2 gm/dL (12.0-15.0); MCH 33.3 pg (26.0-34.0); MCHC 34.2 g/dL (28.0-37.0); MCV 97.4 fL (80.0-100.0); RBC 3.66 mil/uL (4.20-5.00); RDW 12.9 % (10.5-14.5); WBC 5.7 thou/uL (4.0-11.0)
[2019-01-10 04:58] LABS: ALBUMIN 3.2 g/dL (3.4-5.0); CALCIUM 9.9 mg/dL (8.5-10.1); CREATININE 0.8 mg/dL (0.6-1.0); POTASSIUM 3.6 mmol/L (3.5-5.1); TOTAL BILIRUBIN 0.2 mg/dL (<0.1-1.0); TOTAL PROTEIN 7.5 g/dL (6.4-8.2)
[2019-01-10 10:23] VITALS: BP 147/100
--- NOTE | 2019-01-10 16:19 | NUR ---
VSS REMAINS CALM TODAY ALERT AND ORINTED TO PERSON , HOSPITAL, DECEMBER AND 2018 GETS IMPULSIVE STILL AT TIMES AND STARTS CLIMBING OUT OF BED.HOWEVER NO COMABATIVE BEHAVIOR TODAY. RESTRAINTS DC'D AT 1000. ;UNGS CLEAR , RA SAT IS 99% WILL CONTINUE TO MONITER AND CARE FOR PT PER PLAN OF CARE
[2019-01-10 16:50] VITALS: BP 145/106
[2019-01-10 19:56] VITALS: BP 130/92
--- NOTE | 2019-01-11 03:28 | NUR ---
ASSUMED CARE 1899. VSS. ASSESSMENT CHARTED. ALERT TO SELF, IMPULSIVE, CONFUSED AT TIMES. DID NOT VISIT OR BRING FOOD THIS SHIFT. STATES SHES TRYING TO GO TO THE STORE, RE-ORIENTED. NO COMBATIVE BEHAVIOR THIS SHIFT. RA LUNGS CLEAR STATS WNL. SLEPT WELL THROUGHOUT NIGHT. WILL CONTINUE TO MONITOR AND WITH POC.
[2019-01-11 04:55] VITALS: BP 160/107
[2019-01-11 07:30] VITALS: BP 137/93
--- NOTE | 2019-01-11 08:41 | NUR ---
RESTRAINTS DC YESTERDAY AT APPROX 10:00 AM. MARH IN PROCESS OF EVAL. PATIENT NEEDS TO BE RESTRAINT FREE FOR 48 HOURS PRIOR TO REHAB/SKILLED.
[2019-01-11 11:30] VITALS: BP 121/72
--- NOTE | 2019-01-11 13:35 | NUR ---
PT MENTAL STATUS REMAINS THE SAME, AT TIMES VERY ALERT AND ORIENTED X3 THEN NEXT MOMENT LISTLESS, BELIGERANT AGGRESSIVE AND IMPULSIVE. WITH PT/OT TODAY PT VERY UNSTEADY ON FEET AT TIMES AND GRABBING AT THINGS IN AIR. REMAINS NSR TO ST ON MONITER 90-110 DEPENDING ON AGITATION. APPETITE 75% FOR BREAKFAST, REFUSED LUNCH. WILL CONTINUE TO MONITER AND CARE FOR PT PER PLAN OF CARE
--- NOTE | 2019-01-11 14:08 | NUR ---
patient still with confusion. Sp with spouse and discussed acute rehab. He is aware of location of [facility] and agreeable for transition to acute rehab. [facility] director of clinical applications prev met with casemgt and stated patient living in [place] and appropriate for patient to rec services with [facility]. Spouse mentioned patient has a mental health casemgr Lisa Giles. He reports she has been very helpful to patient. Discussed with spouse she mentioned patient may be better served at [facility]. He was not aware this was suggested. It would be beneficial for director of clinical applications to discuss with patient when she is more alert. Casemgt following.
[2019-01-11 16:30] VITALS: BP 100/81
[2019-01-11 19:56] VITALS: BP 154/99
[2019-01-12 04:11] VITALS: BP 162/95
--- NOTE | 2019-01-12 06:05 | NUR ---
ASSUME CRE 1900. PT SEDATED DUE TO COMBATIVENESS. CONFUSION NOTED. PT A/O TO PERSON ONLY. VERY FORGETLY. POOR TOLERANCE TO ACTIVITY. EXTREMELY UNSTEADY AND VERY IMPULSIVE. DID NOT GIVE NIGHT MEDS BECAUSE PT WAS SEDATED AND SLEEPING. ASSESSMENT CHARTED. PROGRESSING WITH POC. PLAN IS TO CONTINUE TO MONITOR LOC AND EVENTUALLY DISCHARGE PT AT BASELINE. WILL CONTINUE TO MONITOR AND FOLLOW WITH POC
[2019-01-12] MEDS ORDERED: SEROQUEL 100 M100 M1 PO (08:57)
[2019-01-12] MEDS ORDERED: CATAPRES0.1 MG PO (08:57)
[2019-01-12] MEDS ORDERED: KEPPRA 500 MG500 M1 PO (08:57)
--- NOTE | 2019-01-12 10:46 | NUR ---
Nutrition: Pt seen for f/u. Per EMR, still confused, combative. D/C soon to SNF. Appetite/intake hit or miss. Breakfast yesterday 75%, refused lunch. Some days refusing all meals/supplement, other days drinks Ensure. Per nsg, brought in a meal which pt ate. Pt also has requested to bring barbeque. Wt has remained stable. Will continue current supplement order of x2 Ensure/meal and remain available.
--- NOTE | 2019-01-12 12:04 | NUR ---
Recommend additional labs to assess for possible dehydration since pt not eating and drinking consistantly. Last labs 01/10 showed Cl 108 high and Na of 145 borderline to high. Continue to push fluids, ensure supplements.
--- NOTE | 2019-01-12 13:48 | NUR ---
ILDA EVALED PATIENT AND HAS SUBMITTED FOR AUTH. ILDA HAS CALLED AND LEFT MESSAGE WITH SPOUSE TO ADDRESS ANY QUESTIONS. CASEMGT FOLLOWING.
--- NOTE | 2019-01-12 18:16 | NUR ---
ASSUMED CARE AT O800, PATIENT IN CHAIR, CONFUSED BUT PLEASANT. AT 0900 PATIENT WITH OT REFUSING SHOWER. 1030 PATIENT SHOWERED WITH OT. VERY AGITATED, CONFUSED, ARGUMENTATIVE. WANTS TO LEAVE, WANTS TO GET ON PLANE TO [place]. UNABLE TO LEAVE ROOM BECAUSE PATIENT WILL NOT STAY IN BED OR CHAIR. PLACED IN WHEELCHAIR AND SITTING WITH CAR MATIAS. CONTINUED TO BE UNCOOPERATIVE AND CONFUSED ALL DAY. DR. HUTCHINS CAME TO SEE PATIENT AND ORDERED NEW MEDICATION PRN AND EEG. WILL HAVE [facility]
[2019-01-12 20:12] VITALS: BP 151/106
[2019-01-13 01:09] VITALS: BP 126/92
--- NOTE | 2019-01-13 04:23 | NUR ---
ASSUMED CARE AT 1900. PT A0 X2. ASSESSMENTS DOCUMENTED. PATIENT RESTLESS AND MODERATELY AGITATED. PRN RESPERIDONE AND ATIVAN GIIVEN. PT KEPT AWAKENING DURING THE NIGHT CALLING FOR NURSES BUT OTHWERWISE SLEPT MAJORITY OF THE NIGHT. ELEVATED BP AT THE BEGINNING OF THE SHIFT. TOOK CLONADINE. RECHECKED BP WAS STABLE AT MIDNIGHT. TYLENOL GIVEN FOR BACK PAIN.WILL CONTINUE TO FOLLOW POC.
[2019-01-13 04:55] VITALS: BP 149/102
[2019-01-13 08:27] VITALS: BP 147/110
--- NOTE | 2019-01-13 14:46 | NUR ---
[facility] has submitted for admission auth with pt's insurance plan. They can accept once auth is in place. Pt's spouse here this afternoon. Discharge needs and plan for rehab reviewed and choice letter signed. 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 Pt's spouse agreeable. Pt more talkative today and worked with therapy. Pt's spouse aware that the pt will need 24hr supervision at home. He is working party supply specialist out of the house right now and says they have good family support as well. DC plan from rehab is to return home with her spouse.
[2019-01-13 16:15] VITALS: BP 137/96
--- NOTE | 2019-01-13 17:46 | NUR ---
PATIENT ASSESSED AND CHARTED. MEDICATIONS GIVEN, PATIENT RESTLESS, CONTINUOUSLY GETTING OUT OF BED. ORIENTED TO SELF. DRANK AN ENSURE AND ATE ICE CREAM. WILL CONTINUE TO MONITOR
[2019-01-13 19:10] VITALS: BP 116/69
--- NOTE | 2019-01-13 19:10 | EEG ---
[facility] [place] [address] ELECTROENCEPHALOGRAM Name: JEANIE ROSEN Room #: 202-P ADM IN M.R.#: [id number] ������������������ Admission: 12/28/18 ������������������ Attend Phys: Wade Whitaker MD Discharge: ������������������ Date of : 59 Report #: [id number] ����������������������������������������������������������������� [id number] THIS REPORT FOR: //name// CC: Wade Whitaker [facility] physician/PCP DATE OF SERVICE: 01/13/2019 This patient's followup EEG is being done to look for any epileptiform activity. Background activity in this patient's EEG is about 10 Hz and 30 microvolt. The patient became drowsy and that is associated with bilateral slowing and vertex sharp waves. Photic stimulation was unremarkable. Throughout the record, no active epileptiform activity was noticed. IMPRESSION: This EEG is intermixed with some theta range slowing. That is a nonspecific abnormality, which can occur with encephalopathy, effect of psychotropic medication, dementia, etc. No active epileptiform activity was noticed during this record. Thank you very much for this referral. ���������������������������������������� <ELECTRONICALLY SIGNED> ���������������������������������������� By: Nghia Daley MD ��������������������������������������������� 01/13/19 1910 1257 1317 Nghia Daley MD /nt
--- NOTE | 2019-01-14 05:34 | NUR ---
PT ANXIOUS AND RESTLESS AT THE BEGINNING OF THE SHIFT. PATIENT REFUSED HER LEVONOX SHORT. OFFERED ROSPERIDONE AND ATIVAN FOR AGITATION BUT PATIENT REFUSED TO TAKE ANY MEDICATION ORAL. PT WAS SELF TRANSFERRING, YELLING AND WAS A GREAT FALL RISK. ADVERTISING DIRECTOR NOTIFIED. STAT X1 ORDER FOR HALDOL GIVEN. PATIENT SLEPT ALL NIGHT AFTER HALDOL. NO FURTHER COMPLAINTS . CALLED AND WAS UPDATED ABOUT PT CONDITION. WILL CONTINUE TO FOLLOW POC.
[2019-01-14 08:33] VITALS: BP 125/83
--- NOTE | 2019-01-14 11:23 | NUR ---
NELLA SPOKE WITH OMER THIS AM WH0 STATES [facility] HAS NOT HEARD ANYTHING REGARDING AUTH FROM INSURANCE FOR PATIENT TO GO TO ACUTE REHAB. NELLA REACHED OUT TO INSURANCE [phone] IN ATTEMPTS TO GET AHOLD OF WHO GIVES THE AUTH FOR ACUTE REHAB. NELLA SPOKE WITH CANDICE WHO STATES THE FACILITY SUBMITTED FOR AUTH ON 01/13 AND EVEN THEIR EXPEPIDTED AUTHS TAKE ANYWHERE FROM 24-48 HRS. SHE STATES SHE COULD SEE SOMEONE WAS REVIEWING THE CHART THIS AM AND ONCE THEY HAVE A DECISION THEY WILL REACH OUT TO REHAB [facility].
--- NOTE | 2019-01-14 12:06 | NUR ---
NELLA SPOKE WITH OMER THIS AM WH0 STATES [facility] HAS NOT HEARD ANYTHING REGARDING AUTH FROM INSURANCE FOR PATIENT TO GO TO ACUTE REHAB. NELLA REACHED OUT TO INSURANCE [phone] IN ATTEMPTS TO GET AHOLD OF WHO GIVES THE AUTH FOR ACUTE REHAB. NELLA SPOKE WITH CANDICE WHO STATES THE FACILITY SUBMITTED FOR AUTH ON 01/13 AND EVEN THEIR EXPEPIDTED AUTHS TAKE ANYWHERE FROM 24-48 HRS. SHE STATES SHE COULD SEE SOMEONE WAS REVIEWING THE CHART THIS AM AND ONCE THEY HAVE A DECISION THEY WILL REACH OUT TO [facility].
--- NOTE | 2019-01-14 13:31 | NUR ---
Followup: Possible discharge soon. Drinking Ensure. Change nutrition status to low risk with interventions in place
--- NOTE | 2019-01-14 17:19 | NUR ---
PATIENT CALM, APPETITE HAS IMPROVED, ATE MASHED POTATOES AND TURKEY AND ENSURE FOR LUNCH.
[2019-01-14 20:18] VITALS: BP 109/55
--- NOTE | 2019-01-15 02:51 | NUR ---
ASSUMED PT CARE AT 1900. PT ASLEEP IN CHAIR AND WHEN AWAKE ORIENTED TO SELF. VITAL SIGNS STABLE, ASSESSMENT CHARTED. NO COMPLAINTS OF PAIN. PT COMPLAINED OF SOME ABDOMINAL DISCOMFORT. MEDS GIVEN ORDERED. FALL PRECUATIONS IN PLACE. PT CLOSE TO NURSING STATION FOR CLOSE MONITORING. PT SEEMED TIRED AND RESTED WELL. WOKE UP INTERMITENTLY TO USE THE RESTROOM. FOLLOWING NURSING PLAN OF CARE. WILL CONTINUE TO MONITOR.
[2019-01-15 10:29] LABS: CALCIUM 9.7 mg/dL (8.5-10.1); CREATININE 0.9 mg/dL (0.6-1.0); MAGNESIUM 1.5 mg/dL (1.8-2.4); POTASSIUM 3.7 mmol/L (3.5-5.1); TOTAL BILIRUBIN 0.1 mg/dL (<0.1-1.0); TOTAL PROTEIN 7.4 g/dL (6.4-8.2)
[2019-01-15 11:34] VITALS: BP 89/53
--- NOTE | 2019-01-15 18:00 | NUR ---
AT 1300, PATIENT WAS OUT OF THE BED, OUT OF ROOM IN THE HALLWAY ATTEMTING TO GET OUT OF THE HOSPITAL. STAFF TRIED TO ORIENT HER BACK TO HER ROOM BUT SHE WAS GETTING INCREASINGLY AGITATED, ANXIOUS. CHER GOOD WAS CALLED, ATTEMPTED TO GIVE ORAL SEDATIVE MEDICATION, BUT PATIENT DENIED TO TAKE ANY. SECURITY ARRIVED AT THIS TIME, TRIED TO CONTAIN THE PATIENT IN THE ROOM, BUT PATIENT WAS GETTING INCREASINGLY AGITATED AND COMBATIVE. HOSPITALIST DR TAVARES WAS NOTIFIED, SAFETY CLOTHING AND EQUIPMENT DEVELOPER WAS ABLE TO GET A HOLD OF HIM, ORDER RECEIVED FOR IV HALDOL. WHEN THIS NURSE WAS TRYING TO ADMINSITER IV HALDOL, PATIENT WAS VERY COMBATIVE, THREW WHATEVER SHE GET A HOLD OF TOWARDS SECURTY. DR TAVARES WAS CALLED, ORDER RECEIVED FOR TWO POINT RESTRAINT, WAS APPLIED AND IV HALDOL GIVEN. BUT PATIENT WAS UNABLE TO CALM DOWN, CONTINUED TO BE AGITATED AND COMBATIVE. DR TAVARES WAS NOTIFED AGAIN, ORDER RECEIVED TO CALL [facility]RE[facility] ROUTER PSYCH DOCTOR, WHO WAS PAGED AND ORDER RECEIVED FOR IM GEODON, MAX OF TWO DOSES WITHIN 24 HOURS AND WAS INSTRUCTED MONITOR ON TELE AND TO MONITOR FOR ANY QTc GREATER THAN 500ms. AFTER ZEODON WAS GIVEN, PATIENT CALMED DOWN FOR A LITTLE BIT. BUT FAMILY CAME, PATIENT BECAME AGITATED AGAIN, SO SOFT RESTRAINT WAS CONTINUED. PRN XANAX AND HALDOL WAS GIVEN AT 1700. PATIENT IS STILL CONFUSED, ANXIOUS, AGITATED, SO SOFT RESTRAINT IS STILL IN PLACE. WILL CONTINUE TO ASSESS AND ASSIST WITH ADLs NEEDED.
[2019-01-15 19:27] VITALS: BP 110/79
--- NOTE | 2019-01-16 03:00 | NUR ---
ASSUMED PT CARE AT 1900. PT ORIENTED ONLY TO SELF, CONFUSED, AGITATED AND RESTLESS. VITAL SIGN STABLE, ASSESSMENT CHARTED. WALKED AROUND UNIT WITH PATIENT. TOLERATED ACTIVITY APPROPRIATELY. MEDS GIVEN. FELL ASLEEP AT ABOUT 2300 AND STAYED ASLEEP FOR THE REST OF SHIFT. CLOSE TO NURSING STATION FOR CLOSE MONITORING. FOLLOWING NURSING PLAN OF CARE. WILL CONTINUE TO MONITOR.
[2019-01-16 04:11] VITALS: BP 129/91
[2019-01-16 11:28] VITALS: BP 103/65
--- NOTE | 2019-01-16 18:36 | NUR ---
ASSUMED CARE OF PATIENT AT 0700. PATIENT IS A&O X SELF. PATIENT COMPLAINS OF GENERALIZED BACK PAIN AT A 8/10 THAT TYLENOL DOES NOT HELP, HOWEVER HER OTHER SCHEDULED MEDS BROUGHT HER PAIN TO A 6/10. SHE IS VERY IMPULSIVE AND ATTEMPTS TO GET OUT OF BED EVERY 15-30 MINUTES FOR VARIOUS REASONS. HER CHAIR AND BED ALARMS HAVE BEEN SET ALL DAY AND CHECKED MULTIPLE TIMES AN HOUR. I SAT AT THE NURSE'S STATION OUTSIDE HER DOOR TO BE ABLE TO GET TO HER BEFORE THE ALARM WENT OFF. THE PATIENT'S AND SON WERE HERE TODAY FOR ABOUT 10-15 MINUTES. THE SON WAS VERY UNSTEADY ON HIS FEET AND SUSPICIOUS IN HIS BEHAVIOR, PULLING THE CURTAIN, ETC. I WENT IN THE ROOM AND THE SON HAD TO GRAB AHOLD OF ME TO STAY STANDING ON HIS FEET. THE HAD BEEN IN THE NAJERA ON THE TELEPHONE, HE CAME BACK IN THE ROOM AND LEFT WITH THE SON. THE PATIENT THEN BECAME VERY AGGITATED AND STATED THAT SHE NEEDED TO LEAVE PUTTING ON HER PANTS AND SHOES. SHE WAS INSISTENT ON GETTING TO THE DOOR TO LEAVE AND BEGAN GETTING AGGRESSIVE. SHE WAS GIVEN IV HALDOL AND WAS ABLE TO BE COACHED BACK INTO BED. SHE WAS ABLE TO STAY IN BED FOR A FEW HOURS BUT CONTINUED TO ATTEMPT TO GET OUT OF BED EVERY 30 MINUTES. SHE MOVED TO THE CHAIR AT THE END OF THE SHIFT AND PUT HER SHOES BACK ON. SHE DRANK ALL OF THE LIQUIDS WITH HER TRAYS IN ADDITION TO THE COOKIES AND COCA COLA THAT WERE BROUGHT IN FROM HOME BUT DID NOT EAT ANY OTHER FOOD. PATIENT TO CONTINUE WITH PLAN OF CARE.
[2019-01-16 19:55] VITALS: BP 103/58
[2019-01-17 04:55] VITALS: BP 128/85
--- NOTE | 2019-01-17 05:25 | NUR ---
Assumed care at 1900. pt AO x 1. More steady on her feet. c/o mild back pain but did not want tylenol stating " I will be alright.". No Haldol, Ativan given throughtout the night. patient awakens to use the bathroom often and bakc to bed. NO other c/o reported during the night. Will continue to follow poc.
[2019-01-17 08:44] VITALS: BP 128/85
[2019-01-17] MEDS ORDERED: SEROQUEL 100 M100 M1 PO ×2 (08:56)
--- NOTE | 2019-01-17 12:16 | NUR ---
PT. DISCHARGING TODAY TO [facility] FAXED DC ORDERS/SUMMARY TO FACILITY. JAVAN IN ADM ARRANGED TRANSPORT VIA [facility] FOR 1400 TODAY. LEFT MSG WITH 'S (KEMAR) VOICEMAIL OF DISCHARGE AND TRANSPORT TIME. UNIT NOTIFIED AND CHART COPY PER US. RN TO CALL REPORT TO [phone].
--- NOTE | 2019-01-17 14:23 | NUR ---
ASSUMED PATIENT CARE, CHARTED MORNING ASSESSMENT, VSS, ALERT AND ORIENTED TO SELF. PATIENT TO BE DISCHARGED TO [facility].
== END 2019-01-17 15:00 | DRG 92 ==
LOC: ER 14:54 → 2N 17:39 → 3W 17:39 → EROBS 17:39 → 3W 20:32 → 2N 12-31 10:53
PROVIDERS: Hospitalist; Internal Medicine; Nurse Practitioner Acute Care; Nurse Practitioner Family; ADMIT Hospitalist
DX: G92 Toxic encephalopathy (principal); F10.231 Alcohol dependence with withdrawal delirium; E87.1 Hypo-osmolality and hyponatremia; F10.27 Alcohol dependence with alcohol-induced persisting dementia; R56.9 Unspecified convulsions; I10 Essential (primary) hypertension; F20.9 Schizophrenia, unspecified; F31.9 Bipolar disorder, unspecified; Y90.9 Presence of alcohol in blood, level not specified; F04 Amnestic disorder due to known physiological condition; M48.061 Spinal stenosis, lumbar region without neurogenic claudication
CPT/HCPCS: 10081; 10879; 27000

== ENCOUNTER 2020-12-08 17:33 | Emergency (ER) | payer OTHER ==
[~2020-12-08] VITALS: Ht 149.9 cm; Wt 53.5 kg
[~2020-12-08 17:33] MED LIST changes: +ACAMPROSATE CA333 MG PO; +CATAPRES0.1 MG PO; +FOLIC ACID1 MG PO; +KEPPRA 500 MG500 M1 PO; +KLOR-CON M2020 MEQ; +MAGOX 400400 MG PO; +METOPROLOL TART25 MG PO; +NORVASC10 MG PO; +PAXIL10 MG PO; +QUETIAPINE FUM100 MG PO; +REMERON15 MG PO; +SEROQUEL 100 M100 M1 PO; +SEROQUEL XR400 M1 PO; +TRAZODONE HCL100 MG PO; +VITAMIN B-1100 M1 PO; +VITAMIN B-1100 M2 PO
[2020-12-08 18:08] LABS: URINE BILIRUBIN NEGATIVE (Negative); URINE BLOOD NEGATIVE (Negative); URINE CLARITY CLEAR; URINE COLOR YELLOW; URINE GLUCOSE-RANDOM* NEGATIVE (Negative); URINE KETONES NEGATIVE (Negative); URINE LEUKOCYTES-REFLEX NEGATIVE (Negative); URINE NITRITE-REFLEX NEGATIVE (Negative); URINE PROTEIN (DIPSTICK) NEGATIVE (Negative); URINE SPECIFIC GRAVITY <= 1.005 (1.005-1.035); URINE UROBILINOGEN 0.2 E.U./dl (0.2-1.0)
[2020-12-08 18:20] LABS: ABSOLUTE NEUTROPHILS 3.5 thou/uL (1.4-8.2); BASOPHILS 0.8 % (0.0-2.0); EOSINOPHILS 0.5 % (0.0-3.0); HEMATOCRIT 37.6 % (37.0-47.0); HEMOGLOBIN 12.8 gm/dL (12.0-15.0); LYMPHOCYTES 33.6 % (24.0-44.0); MCH 32.7 pg (26.0-34.0); MCHC 34.1 g/dL (28.0-37.0); MCV 95.7 fL (80.0-100.0); MONOCYTES 6.1 % (1.0-8.0); PLATELET COUNT 273 thou/uL (150-400); RBC 3.93 mil/uL (4.20-5.00); RDW 12.5 % (10.5-14.5)
[2020-12-08 18:31] LABS: CALCIUM 8.8 mg/dL (8.5-10.1); CREATININE 0.7 mg/dL (0.6-1.0); POTASSIUM 3.9 mmol/L (3.5-5.1)
[2020-12-08 18:50] VITALS: BP 122/68
== END 2020-12-08 19:22 | disposition home or self-care (01) ==
LOC: ER 17:33
PROVIDERS: Nurse Practitioner
DX: G89.29 Other chronic pain (principal); M54.5 Low back pain; R06.00 Dyspnea, unspecified; I10 Essential (primary) hypertension; Z79.899 Other long term (current) drug therapy

== ENCOUNTER 2021-10-24 17:04 | Inpatient (IN) | payer OTHER ==
[~2021-10-24] VITALS: Ht 154.9 cm; Wt 67.1 kg
[2021-10-24 17:14] VITALS: BP 152/98
[2021-10-24] MEDS ORDERED: LIPITOR40 MG PO (17:44)
[2021-10-24] MEDS ORDERED: ASA81BEC PO (17:44)
[2021-10-24] MEDS ORDERED: NORVASC 2.5 MG2.5 M1 PO (17:44)
[2021-10-24] MEDS ORDERED: NORCO7.5 PO (17:45)
[2021-10-24] MEDS ORDERED: BACLOFEN5 MG PO (17:45)
[2021-10-24 17:46] LABS: ABSOLUTE NEUTROPHILS 4.9 thou/uL (1.4-8.2); BASOPHILS 0.6 % (0.0-2.0); EOSINOPHILS 0.9 % (0.0-3.0); MCH 30.1 pg (26.0-34.0); MCHC 34.2 g/dL (28.0-37.0); MCV 88.2 fL (80.0-100.0); MONOCYTES 5.9 % (1.0-8.0); PLATELET COUNT 291 thou/uL (150-400); POLYS 63.6 % (36.0-66.0); RDW 17.4 % (10.5-14.5); WBC 7.7 thou/uL (4.0-11.0)
[2021-10-24] MEDS ORDERED: REMERON15 M2 PO (17:46)
[2021-10-24] MEDS ORDERED: MELOXICAM15 MG PO (17:46)
[2021-10-24] MEDS ORDERED: OXYBUTYNIN 5 MG5 M2 PO (17:47)
[2021-10-24] MEDS ORDERED: OLANZAPINE ODT5 MG PO (17:47)
[2021-10-24] MEDS ORDERED: FISH OIL 1,0001 EAC9 PO (17:48)
[2021-10-24] MEDS ORDERED: VITAMIN D310 MC2 PO (17:48)
[2021-10-24] MEDS ORDERED: VITAMIN B122500 MCG PO (17:49)
[2021-10-24 18:00] LABS: CALCIUM 8.9 mg/dL (8.5-10.1); CREATININE 0.7 mg/dL (0.6-1.0)
[2021-10-24 18:11] LABS: MAGNESIUM 1.8 mg/dL (1.8-2.4); POTASSIUM 3.9 mmol/L (3.5-5.1); TOTAL BILIRUBIN 0.5 mg/dL (0.2-1.0); TOTAL PROTEIN 8.2 g/dL (6.4-8.2)
[2021-10-24 20:19] VITALS: BP 157/85
[2021-10-24 20:24] LABS: URINE BILIRUBIN NEGATIVE (Negative); URINE BLOOD NEGATIVE (Negative); URINE CLARITY CLEAR; URINE COLOR YELLOW; URINE GLUCOSE-RANDOM* NEGATIVE (Negative); URINE KETONES NEGATIVE (Negative); URINE LEUKOCYTES-REFLEX NEGATIVE (Negative); URINE NITRITE-REFLEX NEGATIVE (Negative); URINE PROTEIN (DIPSTICK) NEGATIVE (Negative); URINE UROBILINOGEN 0.2 E.U./dl (0.2-1.0)
[2021-10-24 20:53] VITALS: BP 171/96
[2021-10-24 21:23] VITALS: BP 158/107
[2021-10-24 22:32] LABS: CHOLESTEROL 203 mg/dL (<200); HDL CHOLESTEROL 31 mg/dL (>40); TC:HDL 6.5 Ratio (Not establshd); TRIGLYCERIDE 844 mg/dL (<150); VLDL 169 mg/dL (<40)
[2021-10-24 22:34] LABS: SERUM ASSESSMENT Slight Lipemia
[2021-10-25 03:42] LABS: HEMATOCRIT 35.4 % (37.0-47.0); MCH 30.1 pg (26.0-34.0); MCHC 33.9 g/dL (28.0-37.0); MCV 88.7 fL (80.0-100.0); RBC 3.99 mil/uL (4.20-5.00); RDW 16.4 % (10.5-14.5); WBC 10.2 thou/uL (4.0-11.0)
--- NOTE | 2021-10-25 03:42 | NUR ---
PT ARRIVED FROM ED OVERNIGHT. ADMIT HISTORY DOSUMENTED TO BEST OF ABILITY. 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 MAJORITY OF HISTORY OBTAINED FROM PREV. RECORDS. FLUIDS INFUSING PER ORDERS. BED ALARM ON.
[2021-10-25 03:54] LABS: CALCIUM 8.1 mg/dL (8.5-10.1); CREATININE 0.8 mg/dL (0.6-1.0); POTASSIUM 3.4 mmol/L (3.5-5.1)
[2021-10-25 04:15] VITALS: BP 132/84
[2021-10-25 08:02] VITALS: BP 143/87
--- NOTE | 2021-10-25 08:07 | EKG ---
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 : 1955 Requested By: Channing Seth Order Number: [id number] MD: Dmitri Raman Measurements Intervals [place] Rate: 119 P: 32 OR: 183 QRS: -19 QRSD: 69 T: 57 QT: 295 QTc: 416 Interpretive Statements Sinus tachycardia Borderline left axis deviation Borderline T abnormalities, anterior leads Baseline wander in lead(s) V1,V5 No previous ECG available for comparison Electronically Signed On 10-25-2021 8:06:59 RECORDS MANAGEMENT ENGINEER by Dmitri Raman [email or web address] <ELECTRONICALLY SIGNED> By: Dmitri Raman MD, [facility] 10/25/21 0806 09 09 Dmitri Raman MD, FACC /EPI
--- NOTE | 2021-10-25 09:41 | NUR ---
NUTRITION: CONSULT FOR "ADMIT PROTOCOL." UPON ADMISSION ASSESSEMENT PT REPORTED POOR APPETITE THIS WEEK, NO WT LOSS REPORTED. NOTED WT UP FROM JUST OVER 100 LB IN 2019. 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 DX: PANCREATITIS. LIPASE 4631, ALBUMIN 3.0. MEDS REVIEWED. NOTED HX OF HTN, SCHIZOPHRENIA AND BIPOLAR. ASSESS PT AT MILD NUTRITION RISK. CURRENTLY NPO, EXPECT DIET TO ADVANCE MEDICALLY APPROPRIATE. RD TO FOLLOW UP BY 10/30/21/.
--- NOTE | 2021-10-25 09:45 | NUR ---
PT OFF UNIT TO ULTRASOUND.
--- NOTE | 2021-10-25 10:16 | NUR ---
PT RETURN FROM ULTRASOUND AND IS WORKING WITH PT/OT.
--- NOTE | 2021-10-25 11:07 | NUR ---
CM introduced self to pt. Pt was observed laying supine in bed with her hands cupping her lower right side of abdomen. When cm asked how the pt was feeling, she resonded with a sigh and "I am in pain." Pt was agreeable to cm questions about home environment and prior level of functioning. Pt reports living in an apartment with her spouse and adult son, 10 steps to enter, 0 steps inside. Pt is independent with ADLS. Pt utilizes both a cane and 4WW for assistance in mobility. Pt's 4WW was brought with her on admissions. Pt confirms insurance: [employer] and [facility] Medicaid [place]. Pt reports having a pcp but cannot remember their name - indicated she has the pcp's name/phone number somewhere in her belongings with her in the hospital. Pt reports not being connected with any community psychatric supports. Pt indicated she was seeing a therapist but has seen them in a while since she reports taking care of her son who was sick and herself being sick. CM asked pt if she would be interested in getting resource information, pt denied intrest. Pt reports compliance with her perscribed medications. Upon D/C the pt plans to return home with her spouse and son. CM asked pt if she had any questions or concerns at this time. CM told pt they would follow her case with her care team and to let us know if she needs anything. Pt was agreeable and poliet to CM.
--- NOTE | 2021-10-25 13:18 | NUR ---
I have reviewed the documentation by TRACY SEPULVEDA from 10/25/21 to 10/25/21 and I concur with it. SHAUN GARCIA, PT, DPT
--- NOTE | 2021-10-25 17:25 | NUR ---
NOTICED PT'S RIGHT ARM SWOLLEN. STOP IVF AND DISCONTINUE IV. PAGE DR. PEREZ TO INFORM AND PLACE WARM TOWEL ON ARM.
--- NOTE | 2021-10-25 19:02 | NUR ---
ASSESS PT'S RIGHT ARM AND SWELLING APPEARS TO BE GOING DOWN.
[2021-10-25 20:59] VITALS: BP 133/90
--- NOTE | 2021-10-26 05:12 | NUR ---
IV ACCESS REGAINED OVERNIGHT- FLUIDS SLOWED IN AN EFFORT TO PRESERVE IV. PAIN TREATED PER ORDERS. PT IS CONFUSED AT NIGHT- PT REPORTS THAT IS NORMAL FOR HER WHEN SHE IS OFF HER MEDS- SHE INFORMED THIS RN SHE HAS BEEN KNOW TO "DIVE OFF THE BED". PRN TREATMENT FOR AGGITATION NEEDED OVERNIGHT. AT THIS TIME PT IS RESTING, IV IN PLACE, NO S/S OF PAIN
[2021-10-26 05:21] LABS: CALCIUM 7.3 mg/dL (8.5-10.1); CREATININE 0.6 mg/dL (0.6-1.0)
[2021-10-26 05:34] LABS: HEMATOCRIT 32.5 % (37.0-47.0); HEMOGLOBIN 10.2 gm/dL (12.0-15.0); MCH 31.1 pg (26.0-34.0); MCHC 31.5 g/dL (28.0-37.0); RBC 3.29 mil/uL (4.20-5.00); RDW 17.4 % (10.5-14.5); WBC 7.3 thou/uL (4.0-11.0)
[2021-10-26 05:38] LABS: MCV 98.6 fL (80.0-100.0)
[2021-10-26 05:42] LABS: POTASSIUM 2.8 mmol/L (3.5-5.1)
[2021-10-26 07:28] VITALS: BP 130/92
[2021-10-26 16:00] VITALS: BP 141/92
[2021-10-26 20:18] VITALS: BP 132/88
--- NOTE | 2021-10-27 03:42 | NUR ---
PT IS A/O X4 AND IS UP WITH SBA TO THE BSC OR BR. VSS. AFEBRILE. C/O PAIN. PRN PAIN MEDICATION GIVEN DIRECTED. FALL PRECUATIONS IN PLACE,CALL LIGHT IS WITHIN REACH.
[2021-10-27 04:45] VITALS: BP 147/91
[2021-10-27 06:10] LABS: HEMATOCRIT 29.6 % (37.0-47.0); HEMOGLOBIN 10.1 gm/dL (12.0-15.0); MCH 30.5 pg (26.0-34.0); RBC 3.31 mil/uL (4.20-5.00); RDW 15.4 % (10.5-14.5); WBC 9.4 thou/uL (4.0-11.0)
[2021-10-27 06:16] LABS: MCV 89.6 fL (80.0-100.0)
[2021-10-27 06:27] LABS: CALCIUM 7.6 mg/dL (8.5-10.1); CREATININE 0.6 mg/dL (0.6-1.0)
[2021-10-27 06:32] LABS: POTASSIUM 2.7 mmol/L (3.5-5.1)
[2021-10-27 09:00] VITALS: BP 141/92
[2021-10-27] MEDS ORDERED: OXYBUTYNIN CHLO10 MG PO (15:52)
[2021-10-27] MEDS ORDERED: VITAMIN E1000 UNIT PO (15:56)
[2021-10-27] MEDS ORDERED: VITAMIN C500 M1 PO (15:57)
[2021-10-27] MEDS ORDERED: SUPER THERAVIT1 EACH PO (15:57)
[2021-10-27] MEDS ORDERED: FOLIC ACID1 MG PO (15:58)
[2021-10-27 15:59] VITALS: BP 147/91
[2021-10-27 20:43] VITALS: BP 157/100
[2021-10-27 23:39] VITALS: BP 152/104
--- NOTE | 2021-10-28 03:17 | NUR ---
PT IS A/O X4 BUT AT TIMES CAN BE FORGETFUL AND IMPULSIVE. PT GETS UP WITH SBA TO THE BSC. RA. VSS. MEDICATIONS GIVEN PER MAR. PT C/O WANTING TO GO HOME AND GENERALIZED PAIN. PRN PAIN MEDICATION GIVEN DIRECTED. PT ACCIDENTALLY DISCHARGED IV AT START OF SHIFT. REMOVED WITH CATHETER INTACT AND REPLACED WITH A NEW IV. FLUIDS INFUSING AT PRESCRIBED RATE. MEDICATIONS GIVEN PER NOV. HS BS WNL. NO INSULIN INDICATED. BP ELEVATED. KEY ACCOUNT REPRESENTATIVE NOTIFIED. ORDERS GIVEN AND CARRIED OUT. FALL PRECAUTIONS IN PLACE, CALL LIGHT IS WITHIN REACH. PT IS PROGRESSING TOWARDS PLAN OF CARE DC GOALS.
[2021-10-28 03:35] VITALS: BP 153/99
[2021-10-28 05:58] LABS: HEMATOCRIT 27.4 % (37.0-47.0); HEMOGLOBIN 9.5 gm/dL (12.0-15.0); MCHC 34.7 g/dL (28.0-37.0); MCV 89.2 fL (80.0-100.0); RBC 3.07 mil/uL (4.20-5.00); RDW 15.3 % (10.5-14.5)
[2021-10-28 06:18] LABS: CALCIUM 7.6 mg/dL (8.5-10.1); CREATININE 0.6 mg/dL (0.6-1.0)
[2021-10-28 06:24] LABS: POTASSIUM 2.8 mmol/L (3.5-5.1)
[2021-10-28 07:50] VITALS: BP 143/93
--- NOTE | 2021-10-28 14:17 | NUR ---
Care team indicated that pt is progreesing toward goal of dishcarge home. Pt is to have her diet advanced as tolerated. Care team indicated that depending on that pt may be medically stable to discharge home tomorrow. cm following regarding dc planning.
[2021-10-28 15:31] VITALS: BP 149/95
[2021-10-28 20:01] VITALS: BP 147/98
[2021-10-28 23:56] VITALS: BP 142/99
--- NOTE | 2021-10-29 04:24 | NUR ---
PT TEMPERATURE ELEVATED AT START OF SHIFT. CURRENTLY WNL. C/O ABDOMINAL PAIN. PRN PAIN MEDICATION GIVEN DIRECTED. FALL PRECAUTIONS IMPLMENTED. FLUIDS INFUSING AT PRESCRIBED RATE. CALL LIGHT IS WITHIN REACH. PT CAN BE IMPULSIVE WITH IV TUBING AND GETTING OUT OF BED ON HER OWN DESPITE EDUCATION OF IMPORTANCE TO CALL OUT FOR ASSISTANCE.
[2021-10-29 05:59] LABS: CALCIUM 8.5 mg/dL (8.5-10.1); CREATININE 0.6 mg/dL (0.6-1.0); POTASSIUM 3.2 mmol/L (3.5-5.1)
[2021-10-29 07:28] VITALS: BP 150/94
--- NOTE | 2021-10-29 11:36 | NUR ---
Assumed care of pt at 0700. Pt a&ox4. Pain controlled with prn pain medications. Pt worked with physical therapy and was cleared by them. IVF infusing. Call light within reach. Will continue to monitor.
[2021-10-29 16:18] VITALS: BP 133/82
[2021-10-29 20:38] VITALS: BP 177/95
[2021-10-30] VITALS: BP 151/80
[2021-10-30 05:23] LABS: HEMATOCRIT 27.3 % (37.0-47.0); HEMOGLOBIN 9.4 gm/dL (12.0-15.0); MCH 30.9 pg (26.0-34.0); MCHC 34.5 g/dL (28.0-37.0); MCV 89.5 fL (80.0-100.0); RBC 3.05 mil/uL (4.20-5.00); RDW 14.6 % (10.5-14.5)
--- NOTE | 2021-10-30 05:40 | NUR ---
PATIENT WAS ANXIOUS AND AGITATED THIS SHIFT. MICROSOFT DEVELOPER CALLED NEW ORDR OF [facility]REWL X1. FALL PRECAUTION IN PLACE. PATIENT ENCOURAGED FLUIDS. PATIENT IN BED ASLEEP AT THIS TIME BREATHING REGULAR AND UNLABOURED.
[2021-10-30 06:05] LABS: CALCIUM 8.2 mg/dL (8.5-10.1); CREATININE 0.6 mg/dL (0.6-1.0)
[2021-10-30 06:13] LABS: POTASSIUM 2.6 mmol/L (3.5-5.1)
[2021-10-30 07:34] VITALS: BP 141/118
--- NOTE | 2021-10-30 10:55 | NUR ---
A/O X 3 SOME FORGETFUL MOMENTS, ROOM AIR, AD LELE, CONT B/B, LEFT AC PIV SALINE LOCKED, REPLACED WITH 20 MEQ POTASSIUM, REDRAW IS @ 1230P, NORCO GIVEN PRN FOR ABD PAIN,
[2021-10-30 12:07] LABS: IgG 2389 mg/dL (586-1602)
--- NOTE | 2021-10-30 13:54 | NUR ---
CARE TEAM INDICATED THAT PT MAY BE DC READY TOMORROW TUESDAY 10/31. 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 CM FOLLOWING.
[2021-10-30 19:03] VITALS: BP 111/61
--- NOTE | 2021-10-31 05:50 | NUR ---
Pt. rested quietly at intervals during the night when checked on during frequent rounds. She has been up several times to use the bathroom. Up with walker and stand by assist. Bed alarm is on.
[2021-10-31 07:14] VITALS: BP 148/87
--- NOTE | 2021-10-31 10:15 | NUR ---
A/O X 3, ROOM AIR, AD LELE, CONT B/B, LEFT AC IV SALINE LOCKED, AC HS BS 106 @ BREAKFAST NO INSULIN NEEDED, NORCO GIVEN FOR PAIN POTASSUIM 3.6, NO POTASSIUM GIVEN PER PROTOCAL
[2021-10-31 15:40] VITALS: BP 172/89
[2021-10-31 19:21] VITALS: BP 157/99
--- NOTE | 2021-10-31 21:47 | NUR ---
PT AMBULATING IN ROOM AND NAJERA. STEADY GAIT. PT REQUESTING BP MEDS, PT INFORMED WILL HAVE ORDER IN AM.
[2021-11-01 07:25] VITALS: BP 97/67
--- NOTE | 2021-11-01 09:22 | NUR ---
Followup: pancreatitis resolving, lipase down to 198. Tolerating diet 60-70%, wts are stable. Had been constipated, on miralax and now BM documented today. Remains low nutrition risk
--- NOTE | 2021-11-01 13:26 | NUR ---
Patient appears alert and oriented X4 but seems confused & forgetful (mildly at times). Patient voicing desire to go home. Provider did deem patient medically stable however due to impaired mental status family called to assist with transportation. [facility]loan attempted to be contacted; left voicemail. Pain managed with PRN [place]. Voices no further needs
[2021-11-01 14:19] VITALS: BP 97/67
== END 2021-11-01 17:58 | disposition home or self-care (01) | DRG 439 ==
LOC: ER 17:04 → 4W 20:04 → EROBS 20:04 → 4W 20:56
PROVIDERS: Hospitalist; Internal Medicine Gastroenterology; Nurse Practitioner; Nurse Practitioner Family; Physician Assistant; ADMIT Hospitalist; ATTEND Hospitalist
DX: K85.20 Alcohol induced acute pancreatitis without necrosis or infection (principal); E44.1 Mild protein-calorie malnutrition; E11.9 Type 2 diabetes mellitus without complications; E87.6 Hypokalemia; D64.9 Anemia, unspecified; Z20.822 Contact with and (suspected) exposure to COVID-19; K59.00 Constipation, unspecified; F31.9 Bipolar disorder, unspecified; F20.9 Schizophrenia, unspecified; E78.5 Hyperlipidemia, unspecified; I10 Essential (primary) hypertension; W18.39XA Other fall on same level, initial encounter; Y93.89 Activity, other specified; Y92.89 Other specified places as the place of occurrence of the external cause; Y99.9 Unspecified external cause status; Z68.28 Body mass index [BMI] 28.0-28.9, adult
CPT/HCPCS: 10040